=== PATIENT | male | born 1955 | race Caucasian/White ===

== ENCOUNTER 2019-12-10 19:36 | Inpatient (IN) | payer MEDICAID, OTHER ==
[~2019-12-10] VITALS: Ht 185.4 cm; Wt 85.0 kg
[2019-12-10] MEDS ORDERED: SODIUM CHLORIDE FLUSH 10ML SYR IVF ONE (21:00)
[2019-12-10] MEDS ORDERED: SODIUM CHLORIDE 0.9% 1,000ML IVBOLUS ONE (21:00)
--- NOTE | 2019-12-10 21:06 | NUR ---
REPORT RECEIVED FROM ALBARO FLAHERTY. PT CURRENTLY RESTING ON GURLIN TV. NAD NOTED. PT NSR 80'S. PT ON CONT BP, CARDIAC AND O2 MONITORS. LAB AT BEDSIDE. CALL LIGHT WITHIN REACH. WILL CONT TO MONITOR PT.
[2019-12-10 21:12] LABS: BASOPHILS # (AUTO) 0.07 x10^3/uL (0-0.1); BASOPHILS % (AUTO) 1 % (0-1); EOSINOPHILS # (AUTO) 0.12 x10^3/uL (0-0.4); EOSINOPHILS % (AUTO) 2 % (1-7); LYMPHOCYTES # (AUTO) 1.81 x10^3/uL (1-3.4); LYMPHOCYTES % (AUTO) 30 % (22-44); MD NO; MEAN CORPUSCULAR HGB CONC 33.9 g/dL (33.2-36.2); MEAN CORPUSCULAR VOLUME 94.5 fL (81-97); MEAN PLATELET VOLUME 8.3 fL (7.4-10.4); MONOCYTES # (AUTO) 0.48 x10^3/uL (0.2-0.8); MONOCYTES % (AUTO) 8 % (2-9); NEUTROPHILS # (AUTO) 3.52 x10^3/uL (1.8-6.8); NEUTROPHILS % (AUTO) 59 % (42-75); PLATELET COUNT 104 x10^3/uL (130-400); RED BLOOD COUNT 4.24 x10^6/uL (4.38-5.82); RED CELL DISTRIBUTION WIDTH 15.3 % (9.4-14.8)
[2019-12-10] MEDS ORDERED: TRAM-47 PO (21:18)
[2019-12-10] MEDS ORDERED: CYCL-259 PO (21:18)
[2019-12-10 21:25] LABS: ALANINE AMINOTRANSFERASE 36 U/L (12-78); ALBUMIN 3.4 g/dL (3.4-5.0); ANION GAP 9 mmol/L (5-15); CALCIUM 8.7 mg/dL (8.5-10.1); CHLORIDE 107 mmol/L (98-107); CREATININE 1.26 mg/dL (0.7-1.3)
[2019-12-10 21:30] LABS: ALKALINE PHOSPHATASE 128 U/L (45-117); BILIRUBIN,TOTAL 3.9 mg/dL (0.2-1.0); TOTAL PROTEIN 6.9 g/dL (6.4-8.2); TROPONIN I < 0.015 ng/mL (0.000-0.045)
--- NOTE | 2019-12-10 21:50 | NUR ---
URINE SAMPLE OBTAINED AND WALKED TO LAB. PT CURRENTLY RESTING ON GURNEY. NAD NOTED. PT CURRENTLY DENIES PAIN. PT REQUESTED AND WAS PROVIDED WITH A BLANKET. PT AWARE WE ARE WAITING FOR LAB/IMAGING RESULTS. PT ON CONT BP, CARDIAC AND O2 MONITORS. CALL LIGHT WITHIN REACH. WILL CONT TO MONITOR PT.
[2019-12-10 21:56] LABS: CULTURE INDICATED? YES; MICROSCOPIC INDICATED
--- NOTE | 2019-12-10 21:57 | NUR ---
REPORT TO ALBARO GARCIA WHO ASSUMED CARE OF PT.
--- NOTE | 2019-12-10 22:02 | NUR ---
REPORT RECEIVED FROM ALBARO STREET. ASSUMED CARE OF PT. PT RESTING ON GURNEY IN NAD. ALL VITALS STABLE. AWAITING TEST RESULTS AT [facility]. CALL LIGHT WITHIN REACH. WILL CONTINUE TO MONITOR.
--- NOTE | 2019-12-10 22:45 | NUR ---
PT BACK FROM CT. RESTING ON GURNEY. NO DISTRESS NOTED. ALL VITALS STABLE. AWAITING CT RESULTS. PONCHO LCONTINUE TO MONITOR.
[2019-12-10] MEDS ORDERED: HEPARIN 5,000 UNITS/ML, 1ML IV ONE (23:30)
[2019-12-10] MEDS ORDERED: CEFTRIAXONE PMX 1GM/50ML 50 ML IV ONE (23:30)
[2019-12-10] MEDS ORDERED: HEPARIN 25,000 UNITS/250ML PMX 250 ML IV PRN (23:30)
[2019-12-10 23:36] LABS: INTERNATIONAL NORMALIZED RATIO 1.32 (0.93-1.1)
[2019-12-11] MEDS ORDERED: HEPARIN 5,000 UNITS/ML, 1ML ONE (00:09)
[2019-12-11] MEDS ORDERED: HEPARIN 25,000 UNITS/250ML PMX 250 ML ONE (00:09)
[2019-12-11] MEDS ORDERED: CEFTRIAXONE PMX 1GM/50ML 50 ML ONE (00:09)
--- NOTE | 2019-12-11 00:10 | NUR ---
WEIGHT CONFIRMED WITH WEIGHTED BED.
[2019-12-11] MEDS ORDERED: ACETAMINOPHEN 325 MG TABLET PO PRN (00:30)
[2019-12-11] MEDS ORDERED: ONDANSETRON 2MG/ML, 2ML IVPush PRN (00:30)
--- NOTE | 2019-12-11 00:32 | NUR ---
PT MEDICATED PER EMAR WITH ROCEPHIN AND HEPARIN. VERIFIED WITH ALBARO MANCUSO.
--- NOTE | 2019-12-11 00:58 | NUR ---
REPORT TO ALBARO SOLOMON
[2019-12-11 01:39] VITALS: BP 128/81
[2019-12-11 02:50] VITALS: BP 128/81
[2019-12-11 07:41] VITALS: BP 104/70
[2019-12-11] MEDS: HEPARIN 5,000 UNITS/ML, 1ML IV PRN (07:46)
[2019-12-11] MEDS: HEPARIN 25,000 UNITS/250ML PMX 250 ML IV PRN (07:50)
[2019-12-11 13:44] VITALS: BP 115/78
[2019-12-11 20:36] VITALS: BP 115/79
[2019-12-12] VITALS: BP 95/58
[2019-12-12] MEDS: HEPARIN 25,000 UNITS/250ML PMX 250 ML IV PRN ×2 (03:04→21:53)
[2019-12-12 03:52] LABS: MEAN CORPUSCULAR HEMOGLOBIN 32.1 pg (27.5-34.5); MEAN CORPUSCULAR HGB CONC 33.9 g/dL (33.2-36.2); MEAN CORPUSCULAR VOLUME 94.5 fL (81-97); RED BLOOD COUNT 3.78 x10^6/uL (4.38-5.82); RED CELL DISTRIBUTION WIDTH 15.1 % (9.4-14.8)
[2019-12-12 03:59] LABS: ANION GAP 6 mmol/L (5-15); CHLORIDE 111 mmol/L (98-107); CREATININE 0.78 mg/dL (0.7-1.3)
[2019-12-12 04:20] LABS: MD YES; PLATELET COUNT 75 x10^3/uL (130-400)
[2019-12-12 04:27] LABS: <PLATELET ESTIMATE> DECREASED; <PLT MORPHOLOGY> NORMAL PLT MORPH; ANISOCYTOSIS 1+; LYMPH#(MANUAL) 2.32 x10^3/uL (1-3.4); LYMPHS% (MANUAL) 54 % (22-44); MONOS#(MANUAL) 0.04 x10^3/uL (0.3-2.7); MONOS% (MANUAL) 1 % (2-9); SEG#(MANUAL) 1.94 x10^3/uL (1.8-6.8); SEGS% (MANUAL) 45 % (42-75)
[2019-12-12] MEDS: HEPARIN 5,000 UNITS/ML, 1ML IV PRN (04:40)
[2019-12-12 07:09] VITALS: BP 112/79
[2019-12-12] MEDS ORDERED: POTASSIUM CHLORIDE 20 MEQ TAB.ER.PRT PO ONE (09:30)
[2019-12-12] MEDS: morphine SULFATE 10 MG/ML, 1ML IVPush PRN ×3 (12:11→22:01)
[2019-12-12] MEDS: OXYcodone/APAP 5/325MG TABLET PO PRN ×2 (13:32→22:59)
[2019-12-12 13:53] VITALS: BP 163/96
[2019-12-12 14:12] LABS: HIT RESULT NEGATIVE (NEGATIVE)
[2019-12-12 20:03] VITALS: BP 142/87
[2019-12-13 00:36] VITALS: BP 154/109
[2019-12-13] MEDS ORDERED: LORazepam 1MG TABLET PO PRN ×4 (02:30)
[2019-12-13] MEDS ORDERED: LORazepam 0.5MG TABLET PO PRN (02:30)
[2019-12-13] MEDS ORDERED: THIAMINE 200 MG in DEXTROSE 5% 50 ML IVPB ONE (02:30)
[2019-12-13] MEDS ORDERED: LORazepam 2 MG/ML, 1ML IV PRN ×5 (02:30)
[2019-12-13] MEDS: DIAZEPAM 10 MG TABLET PO SCH ×4 (03:11→21:46)
[2019-12-13 05:42] LABS: CALCIUM 8.8 mg/dL (8.5-10.1); CHLORIDE 102 mmol/L (98-107)
[2019-12-13 05:48] LABS: ALANINE AMINOTRANSFERASE 39 U/L (12-78); ALBUMIN 3.2 g/dL (3.4-5.0); ALKALINE PHOSPHATASE 113 U/L (45-117); ANION GAP 7 mmol/L (5-15); BILIRUBIN,TOTAL 2.3 mg/dL (0.2-1.0); CREATININE 0.85 mg/dL (0.7-1.3); TOTAL PROTEIN 6.6 g/dL (6.4-8.2)
[2019-12-13] MEDS: morphine SULFATE 10 MG/ML, 1ML IVPush PRN ×4 (05:49→16:33)
[2019-12-13 05:52] LABS: BASOPHILS # (AUTO) 0.03 x10^3/uL (0-0.1); BASOPHILS % (AUTO) 1 % (0-1); EOSINOPHILS # (AUTO) 0.06 x10^3/uL (0-0.4); EOSINOPHILS % (AUTO) 1 % (1-7); LYMPHOCYTES # (AUTO) 2.04 x10^3/uL (1-3.4); LYMPHOCYTES % (AUTO) 28 % (22-44); MD SCAN; MEAN CORPUSCULAR HEMOGLOBIN 32.3 pg (27.5-34.5); MEAN CORPUSCULAR HGB CONC 34.5 g/dL (33.2-36.2); MEAN CORPUSCULAR VOLUME 93.6 fL (81-97); MEAN PLATELET VOLUME 7.8 fL (7.4-10.4); MONOCYTES # (AUTO) 0.56 x10^3/uL (0.2-0.8); MONOCYTES % (AUTO) 8 % (2-9); NEUTROPHILS # (AUTO) 4.48 x10^3/uL (1.8-6.8); NEUTROPHILS % (AUTO) 63 % (42-75); PLATELET COUNT 118 x10^3/uL (130-400); RED BLOOD COUNT 4.09 x10^6/uL (4.38-5.82); RED CELL DISTRIBUTION WIDTH 15.7 % (9.4-14.8)
[2019-12-13 08:06] VITALS: BP 164/99
[2019-12-13] MEDS ORDERED: DIAZEPAM 5 MG TABLET ONE ×2 (08:48→15:38)
[2019-12-13] MEDS: FOLIC ACID 1 MG TABLET PO SCH (08:56)
[2019-12-13] MEDS: MULTIVITAMINS/MINERALS TABLET PO SCH (08:56)
[2019-12-13] MEDS: OXYcodone/APAP 5/325MG TABLET PO PRN ×2 (10:30→15:41)
[2019-12-13 14:11] VITALS: BP 132/89
[2019-12-13 20:12] VITALS: BP 94/61
[2019-12-13] MEDS ORDERED: DIAZEPAM 5 MG TABLET PO SCH (21:00)
[2019-12-13] MEDS: HEPARIN 25,000 UNITS/250ML PMX 250 ML IV PRN (21:43)
[2019-12-14 02:02] VITALS: BP 103/68
[2019-12-14] MEDS: DIAZEPAM 5 MG TABLET PO SCH ×4 (02:06→20:04)
[2019-12-14] MEDS: OXYcodone/APAP 5/325MG TABLET PO PRN (02:07)
[2019-12-14 07:36] VITALS: BP 128/87
[2019-12-14] MEDS: MULTIVITAMINS/MINERALS TABLET PO SCH (07:49)
[2019-12-14] MEDS: FOLIC ACID 1 MG TABLET PO SCH (07:49)
[2019-12-14] MEDS ORDERED: THIAMINE 100 MG in DEXTROSE 5% 50 ML IVPB SCH (09:00)
[2019-12-14] MEDS: TAMSULOSIN 0.4 MG CAP.ER.24H PO SCH (11:19)
[2019-12-14] MEDS: morphine SULFATE 10 MG/ML, 1ML IVPush PRN ×2 (11:19→22:14)
[2019-12-14 13:38] VITALS: BP 111/74
[2019-12-14] MEDS: HEPARIN 25,000 UNITS/250ML PMX 250 ML IV PRN (19:55)
[2019-12-14 20:17] VITALS: BP 113/76
[2019-12-15] VITALS (7 sets, daily range): BP systolic 94–121; BP diastolic 61–81
[2019-12-15] MEDS: DIAZEPAM 5 MG TABLET PO SCH (02:30)
[2019-12-15] MEDS: morphine SULFATE 10 MG/ML, 1ML IVPush PRN (03:58)
[2019-12-15] MEDS: FOLIC ACID 1 MG TABLET PO SCH (09:56)
[2019-12-15] MEDS: THIAMINE 100MG TABLET PO SCH (09:56)
[2019-12-15] MEDS: MULTIVITAMINS/MINERALS TABLET PO SCH (09:56)
[2019-12-15] MEDS: TAMSULOSIN 0.4 MG CAP.ER.24H PO SCH (09:56)
[2019-12-15] MEDS ORDERED: MAGNESIUM CITRATE 300ML ORAL SOL ONE (10:08)
[2019-12-15] MEDS ORDERED: MAGNESIUM CITRATE 300ML ORAL SOL PO PRN (10:30)
[2019-12-15] MEDS ORDERED: DOCUSATE 50 MG/5 ML, 10ML UDC PO PRN (10:30)
[2019-12-15] MEDS ORDERED: MAGNESIUM CITRATE 300ML ORAL SOL PO ONE (10:30)
[2019-12-15] MEDS ORDERED: BISACODYL 10 MG SUPP PR PRN (10:30)
[2019-12-15] MEDS ORDERED: POLYETHYLENE GLYCOL 17 GM PACKET PO ONE (10:30)
[2019-12-15] MEDS: OXYcodone/APAP 5/325MG TABLET PO PRN (11:14)
[2019-12-15] MEDS ORDERED: OXYcodone/APAP 5/325MG TABLET PO PRN (12:30)
[2019-12-15] MEDS ORDERED: OXYcodone/APAP 7.5/325MG TABLET ONE (14:58)
[2019-12-15] MEDS: OXYcodone/APAP 7.5/325MG TABLET PO PRN ×2 (15:00→20:02)
[2019-12-15] MEDS: HEPARIN 25,000 UNITS/250ML PMX 250 ML IV PRN (18:15)
[2019-12-15 18:36] LABS: BASOPHILS # (AUTO) 0.06 x10^3/uL (0-0.1); BASOPHILS % (AUTO) 1 % (0-1); EOSINOPHILS # (AUTO) 0.08 x10^3/uL (0-0.4); EOSINOPHILS % (AUTO) 1 % (1-7); LYMPHOCYTES # (AUTO) 2.55 x10^3/uL (1-3.4); LYMPHOCYTES % (AUTO) 36 % (22-44); MEAN CORPUSCULAR HEMOGLOBIN 32.3 pg (27.5-34.5); MEAN CORPUSCULAR HGB CONC 34.4 g/dL (33.2-36.2); MEAN PLATELET VOLUME 7.8 fL (7.4-10.4); MONOCYTES # (AUTO) 0.81 x10^3/uL (0.2-0.8); MONOCYTES % (AUTO) 11 % (2-9); NEUTROPHILS # (AUTO) 3.59 x10^3/uL (1.8-6.8); NEUTROPHILS % (AUTO) 51 % (42-75); PLATELET COUNT 76 x10^3/uL (130-400); RED BLOOD COUNT 2.91 x10^6/uL (4.38-5.82); RED CELL DISTRIBUTION WIDTH 16.2 % (9.4-14.8)
[2019-12-15 18:37] LABS: MD NO
[2019-12-15] MEDS ORDERED: POLYETHYLENE GLYCOL 17 GM PACKET PO PRN (19:30)
[2019-12-16 04:19] VITALS: BP 94/62
[2019-12-16 05:51] LABS: MEAN CORPUSCULAR HEMOGLOBIN 32.8 pg (27.5-34.5); MEAN CORPUSCULAR HGB CONC 34.7 g/dL (33.2-36.2); MEAN CORPUSCULAR VOLUME 94.4 fL (81-97); RED BLOOD COUNT 2.86 x10^6/uL (4.38-5.82); RED CELL DISTRIBUTION WIDTH 16.9 % (9.4-14.8)
[2019-12-16 05:59] LABS: ALBUMIN 2.6 g/dL (3.4-5.0); ANION GAP 5 mmol/L (5-15); CHLORIDE 104 mmol/L (98-107)
[2019-12-16 06:02] LABS: ALANINE AMINOTRANSFERASE 35 U/L (12-78); ALKALINE PHOSPHATASE 104 U/L (45-117); BILIRUBIN,TOTAL 2.4 mg/dL (0.2-1.0); CREATININE 0.97 mg/dL (0.7-1.3); TOTAL PROTEIN 5.7 g/dL (6.4-8.2)
[2019-12-16 06:08] LABS: BASOPHILS # (AUTO) 0.08 x10^3/uL (0-0.1); BASOPHILS % (AUTO) 1 % (0-1); EOSINOPHILS # (AUTO) 0.11 x10^3/uL (0-0.4); EOSINOPHILS % (AUTO) 2 % (1-7); LYMPHOCYTES % (AUTO) 33 % (22-44); MD SCAN; MEAN PLATELET VOLUME 7.7 fL (7.4-10.4); MONOCYTES # (AUTO) 0.75 x10^3/uL (0.2-0.8); MONOCYTES % (AUTO) 12 % (2-9); NEUTROPHILS # (AUTO) 3.16 x10^3/uL (1.8-6.8); NEUTROPHILS % (AUTO) 52 % (42-75); PLATELET COUNT 87 x10^3/uL (130-400)
[2019-12-16 07:35] VITALS: BP 96/64
[2019-12-16] MEDS: OXYcodone/APAP 7.5/325MG TABLET PO PRN (07:45)
[2019-12-16] MEDS ORDERED: RIVAROXABAN 15 MG TABLET PO SCH ×2 (09:25→17:00)
[2019-12-16] MEDS: MULTIVITAMINS/MINERALS TABLET PO SCH (09:54)
[2019-12-16] MEDS: TAMSULOSIN 0.4 MG CAP.ER.24H PO SCH (09:55)
[2019-12-16] MEDS: FOLIC ACID 1 MG TABLET PO SCH (09:55)
[2019-12-16] MEDS: THIAMINE 100MG TABLET PO SCH (09:55)
[2019-12-16] MEDS ORDERED: RIVA20TA PO (11:01)
[2019-12-16] MEDS ORDERED: RIVA15TA PO (11:01)
[2019-12-16] MEDS ORDERED: TAMS-11 PO (11:01)
[2019-12-16] MEDS ORDERED: OXYC-302 PO (12:31)
[2020-01-06] MEDS ORDERED: RIVAROXABAN 20 MG TABLET PO SCH (17:00)
== END 2019-12-16 13:36 | disposition home health service (06) | DRG 134 ==
LOC: ED 20:14 → EDIP 12-11 00:21 → 5SO 12-11 01:24
PROVIDERS: ATTEND Internal Medicine
DX: I26.99 Other pulmonary embolism without acute cor pulmonale (principal); D69.6 Thrombocytopenia, unspecified; N30.90 Cystitis, unspecified without hematuria; D64.9 Anemia, unspecified; S40.022A Contusion of left upper arm, initial encounter; E03.9 Hypothyroidism, unspecified; Z91.018 Allergy to other foods; E87.6 Hypokalemia; F10.239 Alcohol dependence with withdrawal, unspecified; F17.210 Nicotine dependence, cigarettes, uncomplicated; G89.29 Other chronic pain; K80.20 Calculus of gallbladder without cholecystitis without obstruction; Z86.73 Personal history of transient ischemic attack (TIA), and cerebral infarction without residual deficits; W18.30XA Fall on same level, unspecified, initial encounter; Y93.89 Activity, other specified; Y92.89 Other specified places as the place of occurrence of the external cause; Y99.8 Other external cause status; M54.9 Dorsalgia, unspecified
CPT/HCPCS: 36415; 70450; 71045; 71275; 80048; 80053; 81001; 84484; 85025; 85379; 85520; 85610; 85730; 86022; 87086; 93005; 93306; 93356; 93880; 96361; 96365; 96375; G0378; J0696; J1644; J3411; J2270; J7030

== ENCOUNTER 2019-12-29 09:43 | Emergency (ER) | payer MEDICAID, OTHER ==
[~2019-12-29] VITALS: Ht 182.9 cm; Wt 83.5 kg
[~2019-12-29 09:43] MED LIST: CYCL-259 PO; OXYC-302 PO; RIVA15TA PO; RIVA20TA PO; TAMS-11 PO; TRAM-47 PO
[2019-12-29 09:47] VITALS: BP 114/81
[2019-12-29 11:08] LABS: TROPONIN I < 0.015 ng/mL (0.000-0.045)
[2019-12-29 12:09] LABS: BASOPHILS # (AUTO) 0.04 x10^3/uL (0-0.1); BASOPHILS % (AUTO) 1 % (0-1); EOSINOPHILS # (AUTO) 0.11 x10^3/uL (0-0.4); EOSINOPHILS % (AUTO) 2 % (1-7); LYMPHOCYTES # (AUTO) 1.37 x10^3/uL (1-3.4); LYMPHOCYTES % (AUTO) 28 % (22-44); MD NO; MEAN CORPUSCULAR HEMOGLOBIN 32.8 pg (27.5-34.5); MEAN CORPUSCULAR VOLUME 96.5 fL (81-97); MEAN PLATELET VOLUME 6.5 fL (7.4-10.4); MONOCYTES # (AUTO) 0.36 x10^3/uL (0.2-0.8); MONOCYTES % (AUTO) 7 % (2-9); NEUTROPHILS # (AUTO) 3.07 x10^3/uL (1.8-6.8); NEUTROPHILS % (AUTO) 62 % (42-75); PLATELET COUNT 160 x10^3/uL (130-400); RED BLOOD COUNT 3.63 x10^6/uL (4.38-5.82); RED CELL DISTRIBUTION WIDTH 16.6 % (9.4-14.8)
[2019-12-29 12:19] LABS: ALBUMIN 2.9 g/dL (3.4-5.0); ANION GAP 5 mmol/L (5-15); CALCIUM 8.5 mg/dL (8.5-10.1); CHLORIDE 108 mmol/L (98-107); CREATININE 0.96 mg/dL (0.7-1.3)
== END 2019-12-29 14:11 | disposition home or self-care (01) ==
LOC: ED 11:30
DX: R60.0 Localized edema (principal); E88.09 Other disorders of plasma-protein metabolism, not elsewhere classified; E03.9 Hypothyroidism, unspecified; R94.31 Abnormal electrocardiogram [ECG] [EKG]; Z86.711 Personal history of pulmonary embolism
CPT/HCPCS: 36415; 80048; 82040; 83880; 84484; 85025; 93005; 99284

== ENCOUNTER 2020-01-03 07:33 | Emergency (ER) | payer MEDICAID, OTHER ==
[~2020-01-03] VITALS: Ht 182.9 cm; Wt 83.4 kg
[2020-01-03 07:38] VITALS: BP 113/74
--- NOTE | 2020-01-03 07:46 | NUR ---
PT AMBULATED TO THE ROOM W/ A STEADY GAIT.
--- NOTE | 2020-01-03 08:00 | NUR ---
THIS IS A 64 YO M W/ C/O BILAT HAND/FOOT NUMBNESS AND WEAKNESS. PT REPORTS THIS STARTED IN NOVEMBER. PT CONVERSING IN FULL SENTENCES W/O DIFFICULTY. AMBULATED W/ A STEADY GAIT. FACE SYMMETRICAL, EXTREMITIES STRONG EQUAL BILATERALLLY. PT RESTING ON GURNEY W/ CALL LIGHT IN REACH. RESP EVEN AND UNLABORED, ROSAL[facility].
--- NOTE | 2020-01-03 08:46 | NUR ---
Patient given discharge instructions and they have confirmed that they understand the instructions. Patient ambulatory with steady gait.
== END 2020-01-03 08:47 | disposition home or self-care (01) ==
LOC: ED 08:37
DX: G89.29 Other chronic pain (principal); M79.641 Pain in right hand; M79.642 Pain in left hand; M79.672 Pain in left foot; M79.671 Pain in right foot; R20.2 Paresthesia of skin; E03.9 Hypothyroidism, unspecified; Z86.718 Personal history of other venous thrombosis and embolism; Z86.711 Personal history of pulmonary embolism
CPT/HCPCS: 99282